=== PATIENT | male | born 1980 | race Caucasian/White ===

== ENCOUNTER 2020-06-20 10:02 | Emergency (ER) | payer OTHER, SELFPAY ==
--- NOTE | ~2020-06-20 | XR_ITS ---
EXAMINATION: XR shoulder LT min 2V EXAM DATE: 06/20/2020 10:49 INDICATION: Fell one month ago. Persistent pain, limited range of motion. TECHNIQUE: The following left shoulder projections obtained: frontal projection with internal rotatio n, frontal projection with external rotation, Grashey, and scapular Y view (4+ views). There is no p rior study for comparison. FINDINGS: No evidence of left shoulder rotator cuff calcific tendinosis. . Some linear density above the distal tip of the left clavicle, possible dystrophic calcification. Potentially could be posttra umatic etiology. There are no acute fractures identified. IMPRESSION: No acute left shoulder findings. Some linear density above the distal tip of the left cl avicle, possible dystrophic calcification. Reviewed, dictated and finalized at location A. [facility] IMPRESSION: No acute left shoulder findings. Some linear density above the dis chelsey tip of the left clavicle, possible dystrophic calcification.
[2020-06-20 10:18] VITALS: BP 148/63; PULSE 73; RESP 18; TEMP 36.7; O2SAT 100
--- NOTE | 2020-06-20 10:32 | ED.GENADULT ---
HPI - General Adult General Chief complaint: Extremity Injury, Upper Stated complaint: left shoulder pain Time Seen by Provider: 06/20/20 10:33 Source: patient Mode of arrival: ambulatory Limitations: no limitations History of Present Illness HPI narrative: 40-year-old male patient presents to the [facility] with complaints of left shoulder pain x1 month. Patient states that he fell onto some hardwood floor landing on his left shoulder about a month ago. Patient states he has been trying to deal with the pain at home by taking Tylenol, ibuprofen and using icy hot but states that it still sore at times. Patient states he noticed that the pain is worse when it is cold outside however he states that the pain is better when he is moving it around more often. Patient states he notices that the pain has and increases when he first wakes up in the morning and feels kind of sore. Related Data Home Medications Medication Instructions Recorded Confirmed duloxetine 30 mg PO DAILY 06/20/20 06/20/20 rosuvastatin 10 mg PO DAILY 06/20/20 06/20/20 trazodone 50 mg PO HS 06/20/20 06/20/20 venlafaxine 75 mg PO DAILY 06/20/20 06/20/20 Allergies Allergy/AdvReac Type Severity Reaction Status Date / Time No Known Allergies Allergy Unverified 10/25/17 19:26 Review of Systems Review of Systems: Narrative: CONSTITUTIONAL: Denies fever, chills, or sweats. EYES: Denies visual changes, redness, or discharge. ENT: Denies rhinorrhea, congestion, sore throat, or otalgia. CARDIOVASCULAR: Denies chest pain, palpitations, or edema. RESPIRATORY: Denies cough or dyspnea. GASTROINTESTINAL: Denies abdominal pain, nausea, vomiting, or diarrhea. GENITOURINARY: Denies dysuria or hematuria. SKIN: Denies rash or itching. MUSCULOSKELETAL: Denies back pain, joint pain, or myalgia. Positive left shoulder pain x1 month NEUROLOGIC: Denies headache, numbness, or weakness. PSYCHIATRIC: Denies anxiety or depression. [facility] Past Medical History Medical History Depression Hypercholesterolemia Social History Social History Gender identity (if verbalized by the patient): Male Comments At the time of my signature I agree with nursing past medical history, surgical, social, and family history. There is no relevant family history pertinent to the presenting complaint. Exam Narrative: Exam Narrative: GENERAL: Well-appearing, well-nourished, and in no acute distress. HEAD: Normocephalic, atraumatic. EYES: PERRLA and EOMI. ENT: Nares clear, no rhinorrhea or epistaxis. Mucous membranes moist. NECK: Supple. No lymphadenopathy CHEST: Clear to auscultation. No respiratory distress. HEART: Regular rate and rhythm. No murmur heard. Normal peripheral pulses. ABDOMEN: Soft, nontender, nondistended, normal active bowel sounds. EXTREMITIES: The L shoulder is without obvious asymmetry or deformity when compared to the R shoulder. No surface trauma, ecchymosis, crepitus. No bony deformity or prominence of the humeral head No erythema, warmth, swelling. Slight tenderness when palpated around the muscles of the left clavicle but no actual clavicle tenderness. No tenderness to palpation to A to C joint, acromion, scapula or humeral head. No tenderness to palpation of the bicipital groove or soft tissues. No tenderness to palpation of the muscles of the sterncleidomastoid, pectorals, biceps/triceps, deltoid, trapezius, rhomboid, latissimus dorsi, rotator cuff. No pain or limitation with active or passive abduction/adduction, internal/external rotation, flexion/extension. Negative empty can and drop arm test (rotator cuff). No axillary tenderness or lymphadenopathy. Normal sensation over the deltoid and ability to flex arm at elbow indicates intact axillary nerve function. Distal motor and neurovascular status is intact. SKIN: Warm, dry, no rash. NEURO: No focal deficits. Alert and
== END 2020-06-20 11:22 | disposition home or self-care (01) ==
PROVIDERS: Emergency Provider Nurse Practitioner Family; PCP Emergency Medicine
DX: M25.512 Pain in left shoulder (principal); E78.00 Pure hypercholesterolemia, unspecified; F32.9 Major depressive disorder, single episode, unspecified
CPT/HCPCS: 73030; 99213; G0463

== ENCOUNTER 2024-02-10 12:57 | Emergency (ER) | payer OTHER, SELFPAY ==
[2024-02-10 13:09] VITALS: BP 127/85; PULSE 78; RESP 16; TEMP 36.2; O2SAT 98
--- NOTE | 2024-02-10 13:30 | ED.SKABFB ---
HPI - Skin/Abscess/Foreign Bdy General Chief complaint: Skin/Abscess/Foreign Body Stated complaint: Insect Bite/Right Leg Time Seen by Provider: 02/10/24 13:30 Source: patient, RN notes reviewed and old records reviewed Mode of arrival: ambulatory Limitations: no limitations History of Present Illness HPI narrative: 43-year-old male presents to the [facility] with complaints of insect bite to the right leg. Redness noted to the posterior right calf. Pulse eye or erythema migrans rash noted Patient reports that on the 05 of February he was in tall grass. Does not remember having a tick on. Denies any fevers, body aches. Treatments prior to arrival: none Related Data Home Medications Medication Instructions Recorded Confirmed rosuvastatin 10 mg tablet 10 mg PO DAILY 06/20/20 02/10/24 ergocalciferol (vitamin D2) 1,250 1,250 mcg PO WEEKLY 02/10/24 02/10/24 mcg (50,000 unit) capsule Allergies Allergy/AdvReac Type Severity Reaction Status Date / Time No Known Allergies Allergy Unverified 02/10/24 13:14 Review of Systems Review of Systems: All systems reviewed & are unremarkable except as noted in HPI and below Constitutional: Constitutional: Reports no additional constitutional complaints Eyes: Eyes: Reports no additional eye complaints ENT: Reports system reviewed and no additional complaints, except as documented Cardiovascular: Cardiovascular: Reports no additional cardiovascular complaints, Denies chest pain and Denies dyspnea Respiratory: Respiratory: Reports no additional respiratory complaints, Denies chest congestion, Denies cough and Denies dyspnea Gastrointestinal: Gastrointestinal: Reports no additional gastrointestinal complaints, Denies abdominal pain, Denies nausea and Denies vomiting Musculoskeletal: Musculoskeletal: Reports no additional musculoskeletal complaints Integumentary/Breasts: Skin/Breast: Reports as per HPI and Reports rash Neurologic: Reports system reviewed and no additional complaints, except as documented Psychiatric: Psychiatric: Reports no additional psychiatric complaints Allergic/Immunologic: Allergic/Immunologic: Reports no additional allergic/immunologic complaints PMFSH Past Medical History Medical History Depression Hypercholesterolemia Social History Social History Gender identity (if verbalized by the patient): Male Comments At the time of my signature, I reviewed and agree with the nursing past medical, surgical, social, and family history. There is no relevant family history pertinent to the patient complaint. Exam Const: General: cooperative, healthy appearing, comfortable, no acute distress, well developed, alert and well nourished Nutritional Appearance: well nourished Orientation/consciousness: patient oriented x3 Limitations: no limitations HENMT: Head: normal to inspection Ears: hearing grossly normal bilaterally and external ears normal Face/Nose/Sinus: Normal external nose present, Normal nares present, Normal nasal mucous membranes and turbinates present, normal facial exam and face symmetric Face and sinus: normal facial exam and face symmetric Eyes: General: appearance normal, both eyes and all related structures Alignment and Position: alignment normal Periorbital: periorbital findings normal Neck: Neck: normal visual inspection, full ROM, no lymphadenopathy and no meningeal signs Chest: Chest palpation & inspection: normal inspection of the chest Resp: Effort & Inspection: normal respiratory effort and able to speak in complete sentences Auscultation: clear to auscultation bilaterally, no crackles, no rales, no rhonchi and no wheezes Cardio: Rate: regular rate Rhythm: regular rhythm Skin: General skin exam: normal color and no rashes or lesions noted Lesions: no lesions Trauma: no lacerations or abrasions Wounds: no wounds Ot
== END 2024-02-10 13:40 | disposition home or self-care (01) ==
PROVIDERS: Emergency Provider Nurse Practitioner; PCP Family Medicine
DX: A69.20 Lyme disease, unspecified (principal); E78.00 Pure hypercholesterolemia, unspecified
CPT/HCPCS: 99203; G0463